=== PATIENT | female | born 1980 | race African-American/Black ===

== ENCOUNTER 2017-04-30 11:39 | Emergency (ER) | payer MEDICAID | END 2017-04-30 13:15 | disposition home or self-care (01) | LOC: D.ER 11:39 | DX: S39.012A Strain of muscle, fascia and tendon of lower back, initial encounter (principal); X58.XXXA Exposure to other specified factors, initial encounter; Y93.89 Activity, other specified; Y92.029 Unspecified place in mobile home as the place of occurrence of the external cause ==

== ENCOUNTER 2017-05-03 18:52 | Emergency (ER) | payer MEDICAID | END 2017-05-03 21:27 | disposition home or self-care (01) | LOC: D.ER 18:52 | DX: F41.9 Anxiety disorder, unspecified (principal); N61.0 Mastitis without abscess ==

== ENCOUNTER 2017-06-28 17:31 | Emergency (ER) | payer MEDICAID | END 2017-06-28 20:35 | disposition home or self-care (01) | LOC: D.ER 17:31 | DX: M54.5 Low back pain (principal); F41.9 Anxiety disorder, unspecified ==

== ENCOUNTER 2018-05-07 10:41 | Emergency (ER) | payer MEDICAID ==
[~2018-05-07] VITALS: Ht 167.6 cm; Wt 90.9 kg
[2018-05-07 10:42] VITALS: Ht 167.6 cm; Wt 90.9 kg
[2018-05-07] MEDS ORDERED: ATARAX 25 MG TA25 MG PO (10:45)
[2018-05-07] MEDS ORDERED: VIBRAMYCIN 100100 MG PO (11:46)
[2018-05-07] MEDS ORDERED: VENTOLIN HFA18 GM INH (11:46)
[2018-05-07] MEDS ORDERED: MEDROL4 MG PO (11:46)
[2018-05-07 12:08] VITALS: BP 130/84
== END 2018-05-07 12:10 | disposition home or self-care (01) ==
LOC: D.ER 10:41
DX: J40 Bronchitis, not specified as acute or chronic (principal); M79.18 Myalgia, other site; R09.89 Other specified symptoms and signs involving the circulatory and respiratory systems

== ENCOUNTER 2018-09-13 16:43 | Emergency (ER) | payer MEDICAID ==
[~2018-09-13] VITALS: Ht 167.6 cm; Wt 100.0 kg
[~2018-09-13 16:43] MED LIST: ATARAX 25 MG TA25 MG PO; MEDROL4 MG PO; VENTOLIN HFA18 GM INH; VIBRAMYCIN 100100 MG PO
[2018-09-13 16:51] VITALS: Ht 167.6 cm; Wt 100.0 kg
[2018-09-13] MEDS ORDERED: TAMIFLU75 MG PO (17:46)
[2018-09-13] MEDS ORDERED: TORADOL10 MG PO (17:46)
[2018-09-13 18:22] VITALS: BP 118/61
== END 2018-09-13 18:23 | disposition home or self-care (01) ==
LOC: D.ER 16:43
DX: J11.1 Influenza due to unidentified influenza virus with other respiratory manifestations (principal); M79.18 Myalgia, other site; R50.9 Fever, unspecified

== ENCOUNTER 2019-01-23 15:50 | Emergency (ER) | payer OTHER ==
[~2019-01-23] VITALS: Ht 167.6 cm; Wt 92.7 kg
[~2019-01-23 15:50] MED LIST changes: +TAMIFLU75 MG PO; +TORADOL10 MG PO
[2019-01-23 15:55] VITALS: Ht 167.6 cm; Wt 92.7 kg
[2019-01-23] MEDS ORDERED: SEROQUEL100 MG PO (16:01)
[2019-01-23] MEDS ORDERED: CELEXA40 MG PO (16:01)
[2019-01-23] MEDS ORDERED: ZPAK PO (16:43)
[2019-01-23 17:15] VITALS: BP 117/59
== END 2019-01-23 17:15 | disposition home or self-care (01) ==
LOC: D.ER 15:50
DX: H66.92 Otitis media, unspecified, left ear (principal); S80.861A Insect bite (nonvenomous), right lower leg, initial encounter; J01.90 Acute sinusitis, unspecified